=== PATIENT | female | born 1960 | race Caucasian/White ===

== ENCOUNTER → 2018-03-13 | Outpatient (CLI) | payer SELFPAY | LOC: LAB 17:00 → LAB SHORT 17:00 | PROVIDERS: Internal Medicine | DX: Z01.419 Encounter for gynecological examination (general) (routine) without abnormal findings (principal) | CPT/HCPCS: 87624; G0145 ==

== ENCOUNTER → 2023-06-19 | Outpatient (CLI) | payer OTHER ==
[2023-06-20 16:09] LABS: HPV 16 Negative (Negative); HPV 18 Negative (Negative); HPV OTHER HR TYPES Negative (Negative)
== END ==
LOC: LAB SHORT 15:27 → LAB 15:27
PROVIDERS: Internal Medicine
DX: Z00.00 Encounter for general adult medical examination without abnormal findings (principal)
CPT/HCPCS: 87624; 88175

== ENCOUNTER → 2024-06-24 | Outpatient (CLI) | payer OTHER ==
[2024-07-01 16:26] LABS: HPV HIGH RISK BY TMA Not Detected; HPV SOURCE Cervical
== END ==
LOC: LAB 15:30 → LAB SHORT 15:30
PROVIDERS: Internal Medicine
DX: Z01.419 Encounter for gynecological examination (general) (routine) without abnormal findings (principal)
CPT/HCPCS: 87624; G0123

== ENCOUNTER 2025-04-15 07:06 | Day surgery (SDC) | payer OTHER ==
[~2025-04-15] VITALS: Ht 154.9 cm; Wt 56.7 kg
[2025-04-15] MEDS ORDERED: ESTRADIOL (07:24)
[2025-04-15] MEDS ORDERED: ALLEGRA ALLERGY60 MG (07:25)
[2025-04-15] MEDS ORDERED: THERA-D2000 UNIT (07:25)
[2025-04-15] MEDS ORDERED: ALLEGRA ALLERG180 MG (07:25)
[2025-04-15 09:33] VITALS: BP 117/74
== END 2025-04-15 09:39 | disposition home or self-care (01) ==
LOC: ORSCSDS 07:06
PROVIDERS: Internal Medicine Gastroenterology
PROC: 0DBM8ZX Excision of Descending Colon, Via Natural or Artificial Opening Endoscopic, Diagnostic (ICD-10-PCS; principal; 2025-04-15 08:30)
PROC: 0DBK8ZX Excision of Ascending Colon, Via Natural or Artificial Opening Endoscopic, Diagnostic (ICD-10-PCS; principal; 2025-04-15 08:30)
DX: Z12.11 Encounter for screening for malignant neoplasm of colon (principal); D12.2 Benign neoplasm of ascending colon; D12.4 Benign neoplasm of descending colon; K57.30 Diverticulosis of large intestine without perforation or abscess without bleeding; Z79.899 Other long term (current) drug therapy
CPT/HCPCS: 88305; J2704; J7120